=== PATIENT | female | born 1960 | race Caucasian/White ===

== ENCOUNTER 2019-02-22 21:52 | Inpatient (IN) ==
[2019-02-22] MEDS ORDERED: ONDANSETRON 4 MG/2 ML VIAL IV ONE (22:27)
[2019-02-22] MEDS ORDERED: 0.9 % SODIUM CHLORIDE 1,000 ML IV ONE (22:27)
--- NOTE | 2019-02-22 22:31 | Emergency Department Note ---
Abdominal Pain HPI - General Chief Complaint: Abdominal Pain Stated Complaint: Worst Abdominal Pain Ever Time Seen by Provider: 02/22/19 22:11 - History of Present Illness HPI Narrative: This pleasant 58-year female comes emergency room with epigastric abdominal pain that is gradually been progressive over the last 1 month with it worsening in severity and frequency until it is occurring daily with some waxing and waning. In the last 4 to 5 days it is worsened. Cello used to be the one thing she could tolerate but not even this was tolerated today. Her last bowel movement was 4 days ago but she admits to not taking much in. She is tried Pepto-Bismol just in the last couple of days as well as an antacid with limited benefit. She has had some sweatiness and hot feeling after eating recently. She thought she had food poisoning 2 weeks ago after a sandwich and became rather ill after this. Pain is in the middle subxiphoid region with some radiation into the lower back. It is severe in degree and there is a constant character as well as some waxing and waning of spikes of pain. She had some cold chills and then very hot recently and believes she had a fever. REVIEW OF SYSTEMS: Denies chest pain, cough. Some shortness of breath from the pain. Some nausea. Vomited 6 to 7 x 4 days ago. No diarrhea. If she really is constipated this is somewhat new. She denies hematochezia. Has recently had some black stools but this could be due to Pepto-Bismol though she is only had the Pepto-Bismol and last several days and has not had a bowel movement recently. Denies dysuria or frequency or urgency. Has some bright orange hue to her urine in spite of drinking a fair amount of water. Some back discomforts in the lower back Some general weakness and lightheaded/dizziness. Denies anxiety and depression. - Related Data Home Medications Medication Instructions Recorded Confirmed No Known Home Meds 02/22/19 02/22/19 Allergies Allergy/AdvReac Type Severity Reaction Status Date / Time No Known Drug Allergies Allergy Verified 02/22/19 22:01 Abdominal Pain PMH - Past Medical History Attestation: Yes: The following information was validated with the patient. Medical history: Reports: obesity, other (DENIES: pyelonephritis). Denies: CAD (coronary artery disease), DVT, DM, GERD, hypertension, hypothyroidism, myocardial infarction, pulmonary embolus, renal disease Denies: diverticulitis, kidney stone, pancreatitis, peptic ulcer disease Surgical history ED: Reports: tubal ligation Psychiatric history: Denies: anxiety, depression Family history: Reports: other (Mother, breast cancer) - Social History Smoking status: Former smoker (Remotely brief period of time) Alcohol use: Reports: Occasionally (1 drink may be every 1 or 1-1/2 weeks) Drug use: Reports: none. Denies: marijuana Physical Exam Limitations: no limitations General appearance: alert, in no apparent distress (But at times wincing or slight panting due to epigastric pain.) Head: atraumatic, normocephalic Eye: Present: normal appearance, EOMI ENT: normal oropharynx, mucous membranes dry Neck: Present: trachea midline, other (Mild to moderate tenderness in the lymph nodes bilaterally high anterior chain with mild lymphadenopathy present). Absent: lymphadenopathy, thyromegaly Chest: Present: symmetric chest wall rise Respiratory: Present: normal lung sounds bilaterally. Absent: respiratory distress, wheezes, stridor, accessory muscle use, prolonged expiratory phase Cardiovascular: Present: regular rate, normal rhythm. Absent: systolic murmur, diastolic murmur Abdominal: Present: soft, tenderness, other (Quite large). Absent: distention, guarding, rebound, rigidity, organomegaly, mass Abdominal tenderness: Present: epigastrium, severe Extremities: Absent: pedal edema, pretibial edema, calf tenderness Back: Present: CVA tenderness (R) (Mild, subjective). Absent: CVA tenderness (L), spinous process tenderness Neurological: Present: alert, oriented X3 Psychiatric: Present: normal affect, serious. Absent: depressed, agitated, anxious, tearful, poor eye contact Skin: Present: warm, dry Course Vital Signs Temperature 97.8 F 02/22/19 21:52 Pulse Rate 63 02/22/19 21:52 Respiratory Rate 24 H 02/22/19 21:52 Blood Pressure 158/73 02/22/19 21:52 Pulse Oximetry (%) 98 02/22/19 21:52 Temperature 97.8 F 02/22/19 21:52 Pulse Rate 57 L 02/22/19 22:46 Respiratory Rate 24 H 02/22/19 21:52 Blood Pressure 139/67 02/22/19 22:46 Pulse Oximetry (%) 98 02/22/19 22:46 Abdominal Pain - MDM Narrative Medical decision making narrative: 10:17 PM - acute rather severe and accelerating pain over multiple weeks located epigastric. Labs and imaging and EKG. 11:48 PM - Ultrasound showing probable common bile duct instruction/dilatation with pain over this area. After labs return I will discuss this with surgeon. Urine visualized to be a brown-orange tea color. Patient reports that this has been off and on in the past several days. - Medical Records Medical records reviewed: Yes I reviewed the patient's medical records. - Lab Data Lab results reviewed: Yes I reviewed the patient's lab results. Result diagrams: 02/22/19 22:35 02/22/19 22:35 Lab Results 02/22/19 02/22/19 02/22/19 Range/Units 22:35 22:35 23:52 WBC 12.4 H (4.5-11.0) K/mcL RBC 4.53 (4.00-5.20) M/mcL Hgb 13.2 (12.0-15.0) g/dL Hct 39.0 (36.0-48.0) % MCV 86.1 (80.0-100.0) fL MCH 29.1 (26.0-34.0) pg MCHC 33.8 (31.0-36.0) g/dL RDW 12.1 (11.5-14.5) % Plt Count 266 (140-440) K/mcL MPV 10.8 H (7.4-10.4) fL Gran % 85.5 H (38.0-78.0) % Lymph % (Auto) 6.9 L (15.5-49.0) % [place] % (Auto) 6.7 (1.0-12.0) % Eos % (Auto) 0.3 (0.0-7.0) % Baso % (Auto) 0.6 (0.0-2.0) % Gran # 10.6 H (1.8-8.0) K/mcL Lymph # (Auto) 0.9 L (1.5-4.8) K/mcL [place] # (Auto) 0.8 (0.1-0.9) K/mcL Eos # (Auto) 0 (0.0-0.7) K/mcL Baso # (Auto) 0.1 (0.0-0.3) K/mcL Sodium 135 (133-145) mmol/L Potassium 3.5 (3.3-5.1) mmol/L Chloride 94 L (96-108) mmol/L Carbon Dioxide 26 (22-30) mmol/L Anion Gap 15.0 (8-16) BUN 10 (6-20) mg/dl Creatinine 0.9 (0.6-1.1) mg/dl GFR Calculation 70 Glucose 125 H (70-105) mg/dL Calcium 9.1 (8.6-10.4) mg/dl Total Bilirubin 3.5 H (0.0-1.0) mg/dL AST 331 H (0-37) U/l ALT 317 H (0-40) U/l Alkaline Phosphatase 673 H (39-117) U/L C-Reactive Protein 17.8 H (0.0-0.8) mg/dl Total Protein 7.5 (5.9-8.4) gm/dL Albumin 4.1 (3.2-5.2) gm/dL Globulin 3.4 (2.2-3.7) gm/dL Albumin/Globulin Ratio 1.2 (1.0-2.3) Lipase 1897 H (7-60) U/L Urine Color Ramona Urine Appearance Clear Urine pH 5.0 (5.0-9.0) Ur Specific [place] 1.028 (1.000-1.035) Urine Protein 100 A (NEG) mg/dL Urine Glucose (UA) Negative (NEG) mg/dL Urine Ketones 80 A (NEG) mg/dL Urine Occult Blood 0.03 A (<0.03) mg/dL Urine Nitrate Neg (NEG) Urine Bilirubin 2.0 A (NEG) mg/dL Urine Ictotest Neg (NEG) Urine Urobilinogen 4.0 A (NEG) mg/dL Ur Leukocyte Esterase Neg (NEG) /uL Urine RBC < 1 (0-1) /hpf Urine WBC 2 (0-4) /hpf Ur Squamous Epith Cells < 1 (0-4) /hpf Urine Bacteria 0 (0) /hpf Urine Mucus Many A (0) /hpf Ur Culture Indicated? No - Radiology Data Radiology results reviewed: Yes I reviewed the patient's radiology results. senior technical manager reveals that there is a large number of stones in the gallbladder with dilation and tenderness over it in the pancreas as well as dilatation of the intrahepatic ducts and the common bile duct dilated up to 19 mm. - EKG Data EKG results narrative: No acute coronary syndrome findings. This ECG will be read by a meeting specialist. Disposition Pt seen by FINISHER POLISHER/PA only: No Clinical Impression: Cholelithiasis and acute cholecystitis with obstruction Pancreatitis, acute Qualifiers: Pancreatitis type: unspecified pancreatitis type Acute pancreatitis complication: no infection or necrosis Qualified Code(s): K85.90 - Acute pancreatitis without necrosis or infection, unspecified Summary: See MEDICAL DECISION MAKING above. After consulting with Dr. Robinson Santos, general surgeon, he agrees to admit this patient under his services with consultation from Dr. Ace Zavala, fashion intern for consideration of ERCP. See admitting diagnoses. Patient will be placed on Zosyn 3.375 mg IV every 6 hours as well as pain medication and nausea medication. She will be a full admit. She will be n.p.o. and given IV fluids. Disposition: Xfer As Inpt ([facility]) Referrals: No,PCP [Primary Care Provider] -
[2019-02-22] MEDS: HYDROmorphone 2 MG/ML VIAL IV PRN (22:38)
[2019-02-22 23:26] LABS: Basophils # (Auto) 0.1 K/mcL (0.0-0.3); Basophils % (Auto) 0.6 % (0.0-2.0); Eosinophils # (Auto) 0 K/mcL (0.0-0.7); Eosinophils % (Auto) 0.3 % (0.0-7.0); Granulocytes % (Auto) 85.5 % (38.0-78.0); Hemoglobin 13.2 g/dL (12.0-15.0); Lymphocytes # (Auto) 0.9 K/mcL (1.5-4.8); Lymphocytes % (Auto) 6.9 % (15.5-49.0); Mean Cell Volume 86.1 fL (80.0-100.0); Mean Corpuscular HGB Conc 33.8 g/dL (31.0-36.0); Mean Platelet Volume 10.8 fL (7.4-10.4); Monocytes # (Auto) 0.8 K/mcL (0.1-0.9); Monocytes % (Auto) 6.7 % (1.0-12.0); Platelet Count 266 K/mcL (140-440); RBC 4.53 M/mcL (4.00-5.20); Red Cell Distribution Width 12.1 % (11.5-14.5); WBC 12.4 K/mcL (4.5-11.0)
[2019-02-23 00:13] LABS: ALT/SGPT 317 U/l (0-40); AST/SGOT 331 U/l (0-37); Albumin 4.1 gm/dL (3.2-5.2); Albumin/Globulin Ratio 1.2 (1.0-2.3); Alkaline Phosphatase 673 U/L (39-117); Bilirubin,Total 3.5 mg/dL (0.0-1.0); Blood Urea Nitrogen 10 mg/dl (6-20); C-Reactive Protein 17.8 mg/dl (0.0-0.8); Calcium 9.1 mg/dl (8.6-10.4); Carbon Dioxide 26 mmol/L (22-30); Chloride 94 mmol/L (96-108); Globulin 3.4 gm/dL (2.2-3.7); Glomerular Filtration Rate 70; Glucose 125 mg/dL (70-105)
[2019-02-23 00:44] LABS: Appearance,Urine CLEAR; Bacteria,Urine 0 /hpf (0); Color,Urine AMBER; Culture Indicated,Urine NO; Glucose,Urine (UA) NEGATIVE (NEG); Ictotest,Urine NEG (NEG); Ketones,Urine 80 mg/dL (NEG); Leukocyte Esterase,Urine NEG /uL (NEG); Mucus,Urine MANY /hpf (0); Nitrate,Urine NEG (NEG); Protein,Urine 100 mg/dL (NEG); Specific Gravity,Urine 1.028 (1.000-1.035); Urine Blood 0.03 mg/dL (<0.03); Urine RBC < 1 /hpf (0-1); Urine Squamous Epithelial Cell < 1 /hpf (0-4); Urine WBC 2 /hpf (0-4)
[2019-02-23] MEDS ORDERED: LACTATED RINGERS 1,000 ML IV SCH ×2 (00:45→13:45)
[2019-02-23] MEDS ORDERED: 0.9 % SODIUM CHLORIDE 1,000 ML IV ONE (00:49)
[2019-02-23] MEDS: HYDROmorphone 2 MG/ML VIAL IV PRN ×3 (00:55→21:08)
[2019-02-23] MEDS: PIPERACILLIN SODIUM/TAZOBACTAM 3.375 GM in DEXTROSE 5% IN WATER 50 ML IV SCH ×5 (01:57→23:32)
--- NOTE | 2019-02-23 03:27 | XRay Report ---
CLINICAL INFORMATION: Chest pain COMPARISON: None. FINDINGS: The heart size, mediastinum and pulmonary vessels are unremarkable. The lungs are clear. There are no effusions. The bones and soft tissues are within normal limits. IMPRESSION: Normal chest. Interpreted and Authenticated by: Prakash Davis 02/23/19
--- NOTE | 2019-02-23 03:27 | XRay Report ---
CLINICAL INFORMATION: abdominal pain COMPARISON: None. FINDINGS: The stool gas pattern is unremarkable. There is no free air, soft tissue mass, organomegaly or pathologic calcification. IMPRESSION: Normal abdomen Interpreted and Authenticated by: Prakash Davis 02/23/19
--- NOTE | 2019-02-23 03:39 | Ultrasound Report ---
CLINICAL INFORMATION: severe epigastric pain COMPARISON: None. FINDINGS: The liver is mildly enlarged and diffusely hyperechoic compatible with fatty change. No focal hepatic lesions. Multiple stones present within the gallbladder. Gallbladder wall is normal thickness at 2.5 mm. Common bile duct is markedly dilated in the suprapancreatic region but tapers to 8 mm a pancreatic region. The pancreatic duct is mildly dilated. Pancreas otherwise grossly normal. No free fluid IMPRESSION: Cholelithiasis. Focal tenderness over the gallbladder wall suggests associated cholecystitis. Moderate dilatation of the common bile duct suggesting identified choledocholithiasis in the distal common bile duct. Mild dilatation of pancreatic duct would support a stone in the ampullary region. Suggest: Surgical consultation and consider abdominal MRI /MRCP for better liver evaluation and to evaluate choledocholithiasis in the common bile duct Interpreted and Authenticated by: Prakash Davis 02/23/19
[2019-02-23] MEDS: ONDANSETRON 4 MG/2 ML VIAL IV PRN ×3 (04:08→21:08)
--- NOTE | 2019-02-23 09:14 | Internal Medicine Consult Note ---
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 They're unaffected by eating. 5 days ago, she developed unrelenting constant epigastric pain that radiated into the back. She had subjective fever. She developed nausea and vomiting. She has lost 15 pounds over the last month. She presented to the emergency department where she was discovered to have liver enzyme elevation in a cholestatic pattern with total bilirubin 3.5, alkaline phosphatase 673, ALT 317, AST 331. Lipase was elevated at 1900. White count was elevated at 12,400 with a predominance of gr anulocytes and she was started on Zosyn. She is scheduled to undergo cholecystectomy, but abdominal ultrasound revealed common bile duct dilatation at 19 mm with cholelithiasis and we have been consulted for ERCP. She drinks alcohol about once a week and has never been a heavy drinker. CC: Lupillo Santos MD All systems: reviewed and no additional remarkable complaints except as stated (constipation, which she treats with magnesium) Medical - CN: PMH Medical history: Allergic rhinitis, constipation Surgical history: Tubal ligation Pertinent family history: Her mother had breast cancer. 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 She lives alone. She is a former smoker but no longer uses tobacco. She drinks alcohol once weekly. She denies any recreational drug use. Medical - CN: Meds Home Medications Medication Instructions Recorded Confirmed Type No Known Home Meds 02/22/19 02/22/19 History Allergies Allergy/AdvReac Type Severity Reaction Status Date / Time No Known Drug Allergies Allergy Verified 02/22/19 22:01 Medical - CN: Exam - Constitutional Vitals: Temp Pulse Resp BP Pulse Ox 97.4 F 70 12 122/70 94 02/23/19 03:52 02/23/19 03:52 02/23/19 03:52 02/23/19 03:52 02/23/19 03:52 General appearance: cooperative, mild distress, obese - Head Head exam: Present: atraumatic, normal inspection, normocephalic - Eye Additional comments: very slight icterus - Neck Neck exam: Present: normal inspection. Absent: lymphadenopathy, thyromegaly - Respiratory Respiratory exam: Present: normal respiratory exam, CTAB. Absent: rales, rhon chi, wheezes - Cardiovascular Cardiovascular exam: Present: normal rate and rhythm. Absent: diastolic murmur, gallop, systolic murmur - GI/Abdominal GI/Abdominal exam: Present: normal bowel sounds, hernia, tenderness (marked epigastric tenderness with positive Beyer's sign). Absent: mass, organomegaly - Expanded GI/Abdominal Exam GI/Abdominal exam: Present: Beyer's sign - Extremities Exam Extremities exam: Present: normal inspection, Foot pink and warm. Absent: pedal edema - Neurological Exam Neurological exam: Present: alert. Absent: altered - Psychiatric Psychiatric exam: Present: normal affect, normal mood - Skin Skin exam: Present: warm. Absent: normal color (mild jaundice) Medical - CN: Result - Labs CBC & Chem 7: 02/22/19 22:35 02/22/19 22:35 Labs: Short CBC 02/22/19 Range/Units 22:35 WBC 12.4 H (4.5-11.0) K/mcL Hgb 13.2 (12.0-15.0) g/dL Hct 39.0 (36.0-48.0) % Plt Count 266 (140-440) K/mcL BMP 02/22/19 22:35 Sodium 135 Potassium 3.5 Chloride 94 L Carbon Dioxide 26 BUN 10 Creatinine 0.9 Glucose 125 H Calcium 9.1 Liver Function 02/22/19 Range/Units 22:35 Total Bilirubin 3.5 H (0.0-1.0) mg/dL AST 331 H (0-37) U/l ALT 317 H (0-40) U/l Alkaline Phosphatase 673 H (39-117) U/L Albumin 4.1 (3.2-5.2) gm/dL Urine 02/22/19 Range/Units 23:52 Urine Color [place]ona Urine Appearance Clear Urine pH 5.0 (5.0-9.0) Ur Specific [place] 1.028 (1.000-1.035) Urine Protein 100 A (NEG) mg/dL Urine Glucose (UA) Negative (NEG) mg/dL Medical - CN: A/P (1) Cholelithiasis and acute cholecystitis with obstruction Status: Acute (2) Pancreatitis, acute Status: Acute Assessment and plan: I discussed her case with Dr. Moy. we will arrange for ERCP today. I reviewed this with the patient in detail using an illustration. We discussed the risk of perforation, infection, pancreatitis, and bleeding. Dr. Santos, surgeon, plans to proceed with cholecystectomy following ERCP. We will follow her after ERCP until her lipase and liver enzymes improve.
[2019-02-23 12:01] LABS: INR 1.2 (0.9-1.1); Prothrombin Time 15.1 sec (11.9-14.5)
--- NOTE | 2019-02-23 12:31 | General Surg History&Physical ---
History of Present Illness Patient information: Note initiated : 02/23/19 at 12:29 pm Service Date, if different from initiated Date: [] Patient: Maty Traylor a 58 y/o F admitted on 02/23/19 for Worst Abdominal Pain Ever. Chief Complaint: [] HPI: Ms. Traylor is a 58 year old F admitted with acute cholecystitis with cho lelithiasis and choledocholithiasis. Patient has a one-month history of recurrent epigastric and right upper quadrant pain. She states that she started having severe episodes about 2 weeks ago when she had multiple episodes of nausea vomiting and abdominal bloating that lasted for about 2 days. She continued to have intermittent pains thereafter. The pain became much worse on Thursday of last week and has persisted continuously since that time. She was seen in the emergency room where was noted that she had white blood count 12.4 with elevated transaminases and lipase with alkaline phosphatase of 673. Abdominal ultrasound shows dilated common bile duct of 19 mm and multiple stones with thickened gallbladder wall. Patient is admitted and will undergo ERCP followed by cholecystectomy during this hospitalization. Review of Systems All systems PM: reviewed and no additional remarkable complaints except as stated (no other complaints except as noted in history of present illness) Past History Past medical history: No chronic medical conditions Past surgical history: Tubal ligation Past family history: Mother age 55 due to breast cancer Father age and cause of unknown 5 siblings all healthy without illness Past social history: Single Employment No tobacco use since age 20 Uses vodka at least once weekly Denies drug use Medications and Allergies Home Medications Medication Instructions Recorded Confirmed Type No Known Home Meds 02/22/19 02/22/19 History Allergies Allergy/AdvReac Type Severity Reaction Status Date / Time No Known Drug Allergies Allergy Verified 02/22/19 22:01 Exam Temp Pulse Resp BP Pulse Ox 97.6 F 72 18 108/62 89 L 02/23/19 08:00 02/23/19 08:00 02/23/19 08:00 02/23/19 08:00 02/23/19 08:00 - General physical appearance well developed, well nourished, no distress, obese - Eyes PERRL, normal ocular movement, icteric - ENT normal pinna, normal nares, normal mucosa, no hearing loss, no congestion - Head Head exam IM: Present: atraumatic, normocephalic - Neck no masses, no bruits, trachea midline, no lymphadenopathy, no venous distension - Cardiovascular Cardiovascular exam IM: Present: normal rate and rhythm, RRR, +S1. Absent: JVD, tachycardia - Respiratory normal expansion, normal respiratory effort, clear to percussion, clear to auscultation - Abdomen Abdomen: Present: soft, tender (epigastric and right upper quadrant tenderness with guarding and rebound), bowel sounds Hernia: Present: none - Genitourinary Present: normal external genitalia - Integumentary Present: no rash, no growths, no abnormal pigmentation - Neurologic Present: normal coordination, normal sensation - Musculoskeletal Present: normal gait, normal posture - Psychiatric Present: oriented to time, oriented to person, oriented to place, speech is normal, memory intact Assessment and Plan (1) Cholelithiasis and acute cholecystitis with obstruction Cholecystectomy will be performed during this admission after completion of ERCP Status: Acute (2) Choledocholithiasis Patient will have ERCP later today Status: Acute (3) Pancreatitis, acute Status: Acute Qualifiers: Pancreatitis type: unspecified pancreatitis type Acute pancreatitis complication: no infection or necrosis Qualified Code(s): K85.90 - Acute pancreatitis without necrosis or infection, unspecified (4) Obesity (BMI 30-39.9) Status: Chronic
[2019-02-23] MEDS ORDERED: INDOMETHACIN 25 MG CAPSULE PO ONE (15:00)
[2019-02-23] MEDS ORDERED: NITROGLYCERIN 0.6 MG/HR PATCH TD SCH (15:15)
[2019-02-23] MEDS ORDERED: LACTATED RINGERS 250 ML IV ONE (16:00)
[2019-02-23] MEDS ORDERED: PROPOFOL 40 ML IV ONE (16:39)
[2019-02-23] MEDS ORDERED: MIDAZOLAM 2 MG/2 ML VIAL ONE (16:39)
[2019-02-23] MEDS: PROPOFOL 200 MG/20 ML VIAL IV ONE ×3 (16:48→22:39)
[2019-02-23] MEDS: MIDAZOLAM 2 MG/2 ML VIAL IV ONE ×3 (16:48→22:40)
[2019-02-23] MEDS ORDERED: IOPAMIDOL 100 ML BOTTLE IJ ONE (16:48)
[2019-02-23] MEDS: LACTATED RINGERS 1,000 ML IV SCH (17:28)
[2019-02-24] MEDS: LACTATED RINGERS 1,000 ML IV SCH ×3 (01:38→16:23)
[2019-02-24] MEDS: ONDANSETRON 4 MG/2 ML VIAL IV PRN (01:44)
[2019-02-24] MEDS: HYDROmorphone 2 MG/ML VIAL IV PRN (01:45)
[2019-02-24] MEDS: PIPERACILLIN SODIUM/TAZOBACTAM 3.375 GM in DEXTROSE 5% IN WATER 50 ML IV SCH ×4 (05:16→23:15)
[2019-02-24 09:43] LABS: Basophils # (Auto) 0 K/mcL (0.0-0.3); Basophils % (Auto) 0.5 % (0.0-2.0); Eosinophils # (Auto) 0.1 K/mcL (0.0-0.7); Granulocytes % (Auto) 79.9 % (38.0-78.0); Hematocrit 33.6 % (36.0-48.0); Hemoglobin 11.3 g/dL (12.0-15.0); Lymphocytes # (Auto) 1.1 K/mcL (1.5-4.8); Lymphocytes % (Auto) 12.1 % (15.5-49.0); Mean Cell Volume 87.9 fL (80.0-100.0); Mean Corpuscular HGB Conc 33.5 g/dL (31.0-36.0); Mean Platelet Volume 10.4 fL (7.4-10.4); Monocytes # (Auto) 0.6 K/mcL (0.1-0.9); Monocytes % (Auto) 6.5 % (1.0-12.0); Platelet Count 249 K/mcL (140-440); RBC 3.83 M/mcL (4.00-5.20); WBC 9.3 K/mcL (4.5-11.0)
[2019-02-24 10:09] LABS: ALT/SGPT 295 U/l (0-40); AST/SGOT 160 U/l (0-37); Albumin 3.1 gm/dL (3.2-5.2); Alkaline Phosphatase 500 U/L (39-117); Amylase 59 U/L (28-100); Bilirubin,Direct 0.4 mg/dL (0.0-0.3); Bilirubin,Total 0.9 mg/dL (0.0-1.0); Blood Urea Nitrogen 11 mg/dl (6-20); Calcium 8.4 mg/dl (8.6-10.4); Carbon Dioxide 27 mmol/L (22-30); Chloride 102 mmol/L (96-108); Globulin 3.1 gm/dL (2.2-3.7); Glomerular Filtration Rate 70; Glucose 90 mg/dL (70-105); Lactate Dehydrogenase 197 U/L (94-250); Triglycerides 101 mg/dl (<150); Uric Acid 3.3 mg/dL (2.5-8.0)
--- NOTE | 2019-02-24 11:55 | ERCP Procedure Note ---
ERCP Procedure Notes - Procedure Information Patient information: Note initiated : 02/24/19 at 11:54 am Service Date: 02/23/19 Patient: Maty Traylor 58 y/o F admitted on 02/23/19 for Abdominal Pain. Choledocholithiasis. Pre-op diagnosis general: Common bile duct stone. Post-op diagnosis general: Common bile duct stone. Procedure: ERCP Procedure narrative: The procedures, alternatives and risks were discussed with the patient and the patient's questions were answered. With endoscopist-administered intravenous sedation, the Olympus side viewing operating duodenoscope was introduced into the esophagus and advanced to the second part of the duodenum without difficulty. The ampulla of Vater was identified. Papillotomy was performed using a needle knife. The bile duct was selectively cannulated taking care to avoid the pancreatic duct and cholangiogram obtained. The bile duct was markedly dilated and obstructed with multiple white faceted cholesterol common duct stones. All visible stones were extracted with balloon techniques. At the end of the procedure, the bile duct appeared to be cleared of all stones. The scope was withdrawn. Assessment: Common bile duct stone.
--- NOTE | 2019-02-24 13:42 | Internal Med Progress Note ---
Medical - PN: Subj Patient information: Note initiated : 02/24/19 at 1:40 pm Service Date, if different from initiated Date: [] Patient: Maty Traylor 58 y/o F admitted on 02/23/19 for Abdominal Pain . Chief Complaint: [choledocholithiasis with gallstone pancreatitis] Interval history: Ms Traylor is a 58 year old white female who underwent ERCP which revealed multiple cholesterol stones in the common bile duct. Papillotomy was performed. Lipase and total bilirubin have normalized and liver enzymes are trending down. Abdominal pain and jaundice have resolved. - Constitutional Vitals: Vital Signs Temp Pulse Resp BP Pulse Ox 97.8 F 52 L 16 117/68 93 02/24/19 11:38 02/24/19 03:26 02/24/19 11:38 02/24/19 11:38 02/24/19 11:38 Period Temp Pulse Resp BP Sys/[place] Pulse Ox Last 24 Hr 97.6 F-98.6 F 50-65 14-18 97-125/56-84 90-97 Intake and Output 02/23/19 02/24/19 02/24/19 21:59 05:59 13:59 Intake Total 100 1510 340 Output Total 450 675 425 Balance -350 835 -85 Weight 249 lb Intake & Output: Intake & Output 02/23/19 02/24/19 02/24/19 21:59 05:59 13:59 Intake Total 100 1510 340 Output Total 450 675 425 Balance -350 835 -85 Weight 249 lb Intake: IV 100 1050 100 Lactated Ringers 1,000 ml @ 125 1000 mls/hr IV .Q8H INOC[facility] Rx#: [id number] Zosyn 3.375 gm In Dextrose 5% 100 50 100 in Water 50 ml @ 100 mls/hr IV Q6H INOCENCIA Rx#:[id number] Oral 460 240 Output: Void Amount 450 675 425 Other: Meal Breakfast Percent of Meal Consumed 100% Feeding Ability Independent Urine Appearance Clear Urine Color Dark Yellow Bright Yellow Dark [place] Blood Tinged Urine Odor Strong Normal # Voids 1 # Unmeasured Emesis 1 General appearance: cooperative, no acute distress, obese - GI/Abdominal GI/Abdominal exam: Present: soft. Absent: firm, hernia, mass, rigid, tenderness - Skin Skin exam: Present: dry, normal color, warm Medical - PN: Obj Da - Labs CBC & Chem 7: 02/24/19 08:23 02/24/19 08:23 Labs: Abnormal Lab Results 02/24/19 02/24/19 02/23/19 08:23 08:23 11:23 WBC RBC 3.83 L Hgb 11.3 L Hct 33.6 L MPV Gran % 79.9 H Lymph % (Auto) 12.1 L Gran # Lymph # (Auto) 1.1 L PT 15.1 H INR 1.2 H APTT 41 H Chloride Glucose Calcium 8.4 L Total Bilirubin Direct Bilirubin 0.4 H GGT 387 H AST 160 H ALT 295 H Alkaline Phosphatase 500 H C-Reactive Protein Albumin 3.1 L Lipase Urine Protein Urine Ketones Urine Occult Blood Urine Bilirubin Urine Urobilinogen Urine Mucus 02/22/19 02/22/19 02/22/19 23:52 22:35 22:35 WBC 12.4 H RBC Hgb Hct MPV 10.8 H Gran % 85.5 H Lymph % (Auto) 6.9 L Gran # 10.6 H Lymph # (Auto) 0.9 L PT INR APTT Chloride 94 L Glucose 125 H Calcium Total Bilirubin 3.5 H Direct Bilirubin GGT AST 331 H ALT 317 H Alkaline Phosphatase 673 H C-Reactive Protein 17.8 H Albumin Lipase 1897 H Urine Protein 100 A Urine Ketones 80 A Urine Occult Blood 0.03 A Urine Bilirubin 2.0 A Urine Urobilinogen 4.0 A Urine Mucus Many A Meds: Medications Hydromorphone HCl (Dilaudid) 0.5 - 1 mg IV Q2HP PRN PRN Reason: PAIN LEVEL > 6 Last Admin: 02/24/19 01:45 Dose: 0.5 mg Documented by: Piperacillin Sod/Tazobactam (Sod 3.375 gm/ Dextrose) 50 mls @ 100 mls/hr IV Q6H INOCENC[facility]; Protocol Last Infusion: 02/24/19 13:17 Dose: Infused Documented by: Lactated Ringer's (Lactated Ringers) 1,000 mls @ 125 mls/hr IV .Q8H INOCENCIA Last Admin: 02/24/19 01:38 Dose: 125 mls/hr Documented by: Ondansetron HCl (Zofran) 4 mg IV Q4HP PRN PRN Reason: Nausea And Vomiting Last Admin: 02/24/19 01:44 Dose: 4 mg Documented by: Medical - PN: A/P - Time Spent With Patient Total time spent is greater than 50% in coordination of care (as documented) at patient's floor/unit and/or counseling patient: less than 15 minutes (1) Cholelithiasis and acute cholecystitis with obstruction Status: Acute Current Visit: Yes (2) Pancreatitis, acute Status: Acute Current Visit: Yes - Narrative A/P Narrative: she is scheduled for cholecystectomy later today. Given her improvement, we have signed out on this case to Dr. Santos, but would be happy to see her again if necessary. Medical - PN: Qual - Stroke Symptom Onset Unknown: No - VTE Deep Vein Thrombosis/Pulmonary Embolism Present on Admission: No
--- NOTE | 2019-02-24 13:52 | General Surgery Progress Note ---
Subjective Patient reports: feels better, pain is less, tolerating liquids well, flatus, afebrile Narrative: Note initiated : 02/24/19 at 1:49 pm Service Date, if different from initiated Date: [] Patient: Maty Traylor 58 y/o F admitted on 02/23/19 for Abdominal Pain . Chief Complaint: [patient feels much better. She is successful ERCP with papillotomy and extraction of stones and Unasyn. Her bilirubin and lipase have normalized. Her LFTs are trending down. She is tolerating liquid diet without difficulty. White blood count 9.3,. Hemoglobin 11.3, hematocrit 33.6.] Objective Temp Pulse Resp BP Pulse Ox 97.8 F 52 L 16 117/68 93 02/24/19 11:38 02/24/19 03:26 02/24/19 11:38 02/24/19 11:38 02/24/19 11:38 - Additional Data Intake & Output - Last 24 hours: Intake & Output 02/22/19 02/23/19 02/24/19 02/25/19 05:59 05:59 05:59 05:59 Intake Total 1050 2897 340 Output Total 1950 425 Balance 1050 947 -85 Weight 248 lb 249 lb - General physical appearance well developed, well nourished, no distress, no pain, obese - Eyes PERRL, normal ocular movement - ENT normal pinna, normal nares, normal mucosa, no hearing loss, no congestion - Neck no masses, no bruits, trachea midline, no lymphadenopathy, no venous distension - Respiratory normal expansion, normal respiratory effort, clear to auscultation - Cardiovascular Cardiovascular exam: Present: normal rate and rhythm, RRR, +S1, +S2. Absent: JVD, tachycardia - Abdomen tender (minimal tenderness right upper quadrant), bowel sounds (present), surgical scars (none), masses (none) - Integumentary no rash, no growths, no abnormal pigmentation - Neurologic normal coordination, normal sensation - Musculoskeletal normal gait, normal posture - Psychiatric oriented to time, oriented to person, oriented to place, speech is normal, memory intact - Labs 02/24/19 08:23 02/24/19 08:23 Diabetes panel 02/24/19 Range/Units 08:23 Sodium 141 (133-145) mmol/L Potassium 3.4 (3.3-5.1) mmol/L Chloride 102 (96-108) mmol/L Carbon Dioxide 27 (22-30) mmol/L BUN 11 (6-20) mg/dl Creatinine 0.9 (0.6-1.1) mg/dl Glucose 90 (70-105) mg/dL Calcium 8.4 L (8.6-10.4) mg/dl AST 160 H (0-37) U/l ALT 295 H (0-40) U/l Alkaline Phosphatase 500 H (39-117) U/L Total Protein 6.2 (5.9-8.4) gm/dL Albumin 3.1 L (3.2-5.2) gm/dL Triglycerides 101 (<150) mg/dl Calcium panel 02/24/19 Range/Units 08:23 Calcium 8.4 L (8.6-10.4) mg/dl Phosphorus 3.0 (2.7-4.5) mg/dL Albumin 3.1 L (3.2-5.2) gm/dL Pituitary panel 02/24/19 Range/Units 08:23 Sodium 141 (133-145) mmol/L Potassium 3.4 (3.3-5.1) mmol/L Chloride 102 (96-108) mmol/L Carbon Dioxide 27 (22-30) mmol/L BUN 11 (6-20) mg/dl Creatinine 0.9 (0.6-1.1) mg/dl Glucose 90 (70-105) mg/dL Calcium 8.4 L (8.6-10.4) mg/dl Adrenal panel 02/24/19 Range/Units 08:23 Sodium 141 (133-145) mmol/L Potassium 3.4 (3.3-5.1) mmol/L Chloride 102 (96-108) mmol/L Carbon Dioxide 27 (22-30) mmol/L BUN 11 (6-20) mg/dl Creatinine 0.9 (0.6-1.1) mg/dl Glucose 90 (70-105) mg/dL Calcium 8.4 L (8.6-10.4) mg/dl Total Bilirubin 0.9 (0.0-1.0) mg/dL AST 160 H (0-37) U/l ALT 295 H (0-40) U/l Alkaline Phosphatase 500 H (39-117) U/L Total Protein 6.2 (5.9-8.4) gm/dL Albumin 3.1 L (3.2-5.2) gm/dL Assessment and Plan (1) Cholelithiasis and acute cholecystitis with obstruction Status: Acute Assessment and plan: Patient is significantly improved. She was counseled for laparoscopic cholecystectomy to be performed tomorrow. Current Visit: Yes (2) Choledocholithiasis Status: Resolved Assessment and plan: Status post successful ERCP with papillotomy and stone extraction Current Visit: Yes (3) Pancreatitis, acute Status: Resolved Current Visit: Yes (4) Obesity (BMI 30-39.9) Status: Chronic Current Visit: No - Time Spent With Patient Total time spent is greater than 50% in coordination of care (as documented) at patient's floor/unit and/or counseling patient:
[2019-02-24] MEDS ORDERED: SCOPOLAMINE 1 PATCH PATCH TOPICAL PRN (15:19)
[2019-02-24] MEDS ORDERED: IPRATROPIUM/ALBUTEROL 3 ML AMPUL.NEB NEB PRN (15:19)
[2019-02-24] MEDS ORDERED: BUTALB/ACETAMINOPHEN/CAFFEINE 1 TABLET PO PRN (20:37)
[2019-02-25] MEDS: LACTATED RINGERS 1,000 ML IV SCH ×4 (00:56→16:47)
[2019-02-25] MEDS: PIPERACILLIN SODIUM/TAZOBACTAM 3.375 GM in DEXTROSE 5% IN WATER 50 ML IV SCH ×3 (05:08→18:15)
[2019-02-25] MEDS ORDERED: IPRATROPIUM/ALBUTEROL 3 ML AMPUL.NEB NEB PRN ×2 (06:00→08:43)
[2019-02-25] MEDS: SCOPOLAMINE 1 PATCH PATCH TOPICAL PRN ×2 (07:08→07:09)
[2019-02-25] MEDS ORDERED: GLYCOPYRROLATE 0.2 MG/ML VIAL IV ONE (07:38)
[2019-02-25] MEDS ORDERED: PROPOFOL 200 MG/20 ML VIAL IV ONE (07:38)
[2019-02-25] MEDS ORDERED: DEXAMETHASONE 10 MG/ML VIAL ONE (07:38)
[2019-02-25] MEDS ORDERED: MIDAZOLAM 5 MG/5 ML VIAL ONE (07:38)
[2019-02-25] MEDS ORDERED: LIDOCAINE HCL/PF 100 MG/5 ML SYRINGE IV ONE (07:38)
[2019-02-25] MEDS ORDERED: KETAMINE 10 MG/ML ML ONE (07:38)
[2019-02-25] MEDS ORDERED: ROCURONIUM 10 MG/ML ML IV ONE (07:38)
[2019-02-25] MEDS ORDERED: fentaNYL 100 MCG/2 ML VIAL IV ONE (07:38)
[2019-02-25] MEDS ORDERED: SUGAMMADEX SODIUM 200 MG/2 ML VIAL IV ONE (07:38)
[2019-02-25] MEDS ORDERED: ONDANSETRON 4 MG/2 ML VIAL ONE (07:38)
[2019-02-25] MEDS ORDERED: NALOXONE HCL 0.4 MG/ML VIAL IV PRN (08:43)
[2019-02-25] MEDS ORDERED: FLUMAZENIL 0.1 MG/ML ML IV PRN (08:43)
[2019-02-25] MEDS ORDERED: ONDANSETRON 4 MG/2 ML VIAL IV PRN ×2 (08:43→10:28)
[2019-02-25] MEDS ORDERED: MEPERIDINE 50 MG/ML INJECTION IM PRN (08:43)
[2019-02-25] MEDS ORDERED: ATROPINE SULFATE 0.4 MG/ML VIAL IV PRN (08:43)
[2019-02-25] MEDS ORDERED: ACETAMINOPHEN 1,000 MG/100 ML BOTTLE IV ONE (08:43)
[2019-02-25] MEDS ORDERED: PROMETHAZINE 25 MG/ML VIAL IM PRN (08:43)
[2019-02-25] MEDS ORDERED: diphenhydrAMINE 50 MG/ML VIAL IV PRN (08:43)
[2019-02-25] MEDS ORDERED: MEPERIDINE 25 MG/ML SYRINGE IV PRN (08:43)
[2019-02-25] MEDS ORDERED: PROMETHAZINE 25 MG/ML VIAL IV PRN (08:43)
[2019-02-25] MEDS ORDERED: fentaNYL 100 MCG/2 ML VIAL IV PRN (08:43)
[2019-02-25] MEDS ORDERED: METHOCARBAMOL 1,000 MG/10 ML VIAL IV PRN (08:43)
[2019-02-25] MEDS ORDERED: ePHEDrine 50 MG/ML AMPUL IV PRN (08:43)
[2019-02-25] MEDS ORDERED: METOPROLOL TARTRATE 5 MG/5 ML VIAL IV PRN (08:43)
[2019-02-25] MEDS ORDERED: LACTATED RINGERS 1,000 ML IV SCH (08:45)
--- NOTE | 2019-02-25 09:10 | Brief Operative Note ---
Date of procedure: 02/25/19 Pre-op diagnosis: cholelithiasis with cholecystitis Post-op diagnosis: other (cholelithiasis with cholecystitis) Procedure: laparoscopic cholecystectomy Grafts/Implants: No Anesthesia: GETA Findings: acute severe inflammation of gallbladder with multiple gallstones Complications: none Surgeon: Lupillo Santos Estimated blood loss (cc): 10 Specimens Removed/Pathology: other (gallbladder) Condition: stable Disposition: PACU
[2019-02-25] MEDS ORDERED: HYDROcodone/APAP 5/325MG TABLET PO PRN (10:28)
[2019-02-25] MEDS ORDERED: BUTALB/ACETAMINOPHEN/CAFFEINE 1 TABLET PO PRN (10:28)
[2019-02-25] MEDS: 0.9 % SODIUM CHLORIDE 10 ML SYRINGE IV SCH (12:51)
[2019-02-26] MEDS: 0.9 % SODIUM CHLORIDE 10 ML SYRINGE IV SCH ×3 (00:09→13:15)
[2019-02-26] MEDS: PIPERACILLIN SODIUM/TAZOBACTAM 3.375 GM in DEXTROSE 5% IN WATER 50 ML IV SCH ×3 (00:09→11:28)
[2019-02-26] MEDS: LACTATED RINGERS 1,000 ML IV SCH ×3 (02:38→10:52)
[2019-02-26 06:16] LABS: Basophils # (Auto) 0 K/mcL (0.0-0.3); Basophils % (Auto) 0.3 % (0.0-2.0); Eosinophils # (Auto) 0 K/mcL (0.0-0.7); Eosinophils % (Auto) 0.2 % (0.0-7.0); Granulocytes % (Auto) 75.3 % (38.0-78.0); Hematocrit 34.5 % (36.0-48.0); Hemoglobin 11.4 g/dL (12.0-15.0); Lymphocytes # (Auto) 1.7 K/mcL (1.5-4.8); Lymphocytes % (Auto) 17.4 % (15.5-49.0); Mean Cell Volume 88.8 fL (80.0-100.0); Mean Corpuscular HGB Conc 32.9 g/dL (31.0-36.0); Mean Platelet Volume 10.5 fL (7.4-10.4); Monocytes # (Auto) 0.7 K/mcL (0.1-0.9); Monocytes % (Auto) 6.8 % (1.0-12.0); Platelet Count 294 K/mcL (140-440); RBC 3.89 M/mcL (4.00-5.20); Red Cell Distribution Width 12.8 % (11.5-14.5); WBC 9.6 K/mcL (4.5-11.0)
[2019-02-26 06:34] LABS: ALT/SGPT 130 U/l (0-40); AST/SGOT 22 U/l (0-37); Albumin/Globulin Ratio 0.9 (1.0-2.3); Alkaline Phosphatase 297 U/L (39-117); Bilirubin,Direct 0.2 mg/dL (0.0-0.3); Bilirubin,Total 0.5 mg/dL (0.0-1.0); Blood Urea Nitrogen 6 mg/dl (6-20); Calcium 8.8 mg/dl (8.6-10.4); Carbon Dioxide 30 mmol/L (22-30); Chloride 103 mmol/L (96-108); Globulin 3.2 gm/dL (2.2-3.7); Glomerular Filtration Rate 96; Glucose 98 mg/dL (70-105); Lactate Dehydrogenase 182 U/L (94-250); Phosphorous 2.8 mg/dL (2.7-4.5); Triglycerides 112 mg/dl (<150); Uric Acid 2.2 mg/dL (2.5-8.0)
--- NOTE | 2019-02-26 13:54 | Discharge Summary ---
Providers - Providers Patient information: Note initiated : 02/26/19 at 1:51 pm Service Date, if different from initiated Date: [] Patient: Maty Traylor 58 y/o F admitted on 02/23/19 for Abdominal Pain . Chief Complaint: [] Date of admission: 02/23/19 Discharge date: 02/26/19 Attending physician: Lupillo Santos Hospitalization Hospital course: 58-year-old female who presented with a one-month history of increasing abdominal pain with nausea vomiting and bloating. She became increasingly's more symptomatic for the few days prior to admission. She presented on the day of admission with severe abdominal pain and clinical jaundice. All of her LFTs were elevated as was her lipase. Her alkaline phosphatase was 673. Her common bile duct measures 19 mm. She had thickened gallbladder wall and multiple gallbladder stones. She was seen by Dr. Moy and underwent ERCP with extraction of 6 small stones. He also did a papillotomy. Patient has improved remarkably. She underwent laparoscopic cholecystectomy to February with findings of acute severe inflammation of gallbladder filled with multiple stones. Her LFTs have continued to decrease in her bilirubin and lipase are now normal. She is afebrile and is tolerating diet without difficulty. She is stable for discharge home. Discharge diagnosis: acute and cholecystitis with cholelithiasis and choledocholithiasis Secondary discharge diagnosis: Gallstone pancreatitis Reason for admission: abdominal pain nausea vomiting Procedures: Laparoscopic cholecystectomy March 14 ERCP with papillotomy February 11 Pertinent studies/significant findings: Upper abdominal ultrasound Complications: None Exam Temp Pulse Resp BP Pulse Ox 98.4 F 66 16 114/67 94 02/26/19 12:00 02/26/19 07:26 02/26/19 12:00 02/26/19 12:02/26/19 12:00 - General physical appearance well developed, well nourished, no distress, obese - Eyes PERRL, normal ocular movement. negative: icteric - ENT normal pinna, normal nares, normal mucosa, no hearing loss, no congestion - Head Head exam IM: Present: atraumatic, normocephalic - Neck no masses, no bruits, trachea midline, no lymphadenopathy, no venous distension - Cardiovascular Cardiovascular exam IM: Present: normal rate and rhythm - Respiratory normal expansion, normal respiratory effort, clear to percussion, clear to auscultation - Abdomen Abdomen: Present: soft, tender (bowel tenderness around port sites otherwise benign abdomen), bowel sounds Hernia: Present: none - Genitourinary Present: normal external genitalia - Integumentary Present: no rash, no growths, no abnormal pigmentation - Neurologic Present: normal coordination, normal sensation - Musculoskeletal Present: normal gait, normal posture - Psychiatric Present: oriented to time, oriented to person, oriented to place, speech is normal, memory intact Discharge Plan - Patient/Caregiver Discharge Instructions Activity: increase activity as tolerated Diet: Low Fat Additional Instructions: empty drain as needed - Follow up Plan Follow up with: Yolie Mccracken ARNP [Nurse Practitioner] - 03/03/19 12:30 pm (Please check in 10-15 minutes prior to appointment time.) Lupillo Santos MD [Physician] - 03/08/19 9:15 am No,PCP [Primary Care Provider] - Disposition: Home, Self-Care Prognosis: Good Rehab Potential: Good I certify that the patient requires SNF services.: No Overall status at discharge: patient is progressing back to baseline (on get him out) Pending Studies Resuscitation Status Full Code Diet Full Liquid Diet Start Thu 2 1028 Lactated Ringer's (Lactated Ringers) 1,000 mls @ 125 mls/hr IV .Q8H [facility] Last Admin: 02/26/19 10:52 Dose: 125 mls/hr Documented by: Infusion: 02/26/19 10:38 Dose: 125 mls/hr Documented by: Admin: 02/26/19 02:38 Dose: 125 mls/hr Documented by: Infusion: 02/26/19 00:47 Dose: 125 mls/hr Documented by: Admin: 02/25/19 16:47 Dose: 125 mls/hr Documented by: Infusion: 02/25/19 16:46 Dose: 0 mls/hr Documented by: Admin: 02/25/19 10:31 Dose: 125 mls/hr Documented by: [email or web address] Piperacillin Sod/Tazobactam (Sod 3.375 gm/ Dextrose) 50 mls @ 100 mls/hr IV Q6H [facility]; Protocol Last Infusion: 02/26/19 12:16 Dose: 50 mls/hr Documented by: Admin: 02/26/19 11:28 Dose: 100 mls/hr Documented by: Infusion: 02/26/19 09:21 Dose: 100 mls/hr Documented by: Admin: 02/26/19 05:09 Dose: 100 mls/hr Documented by: Infusion: 02/26/19 00:39 Dose: 100 mls/hr Documented by: Admin: 02/26/19 00:09 Dose: 100 mls/hr Documented by: Infusion: 02/25/19 18:41 Dose: 0 mls/hr Documented by: [email or web address] Admin: 02/25/19 18:15 Dose: 100 mls/hr Documented by: [email or web address] Infusion: 02/25/19 12:50 Dose: 0 mls/hr Documented by: [email or web address] Admin: 02/25/19 12:03 Dose: 100 mls/hr Documented by: [email or web address] Sodium Chloride (Saline Flush) 10 ml IV Q8 [facility] Last Admin: 02/26/19 13:15 Dose: Not Given Documented by: Admin: 02/26/19 05:18 Dose: 10 ml Documented by: Admin: 02/26/19 00:09 Dose: Not Given Documented by: Admin: 02/25/19 12:51 Dose: Not Given Documented by: [email or web address] Shift Summary 02/26/19 03:51 Shift Summary by Bharti Lara. A&Ox4. Has denied pain needs tonight. No N/V/abdominal discomfort. Uses call light to make needs known. Reports BM 02/25/19. IV to L wrist is running LR at 125ml/hr. Film dressings to surgical sites are dry and intact with scant shadow drainage present. Initialized on 02/26/19 03:51 - END OF NOTE
--- NOTE | 2019-03-01 13:14 | Surgical Pathology Report ---
HISTOLOGY SPECIMEN MICROSCOPIC DIAGNOSIS GALLBLADDER, CHOLECYSTECTOMY: -- ACUTE AND CHRONIC CHOLECYSTITIS WITH CHOLELITHIASIS. (RLF:asher) PROCEDURAL IMPRESSION Cholelithiasis; acute cholecystitis. GROSS DESCRIPTION Received in formalin labeled gallbladder, is an 8.7 x 2.6 x 2.3 cm pink-purple gallbladder specimen. The majority of the serosa is smooth and glistening with approximately 40% rough and brown-bro. The cystic duct is closed with a staple line and there is also an additional metal clamp present on the hepatic bed. In the hepatic bed there are three openings ranging in size from 0.2 cm up to 0.5 cm in greatest dimension. The mucosa is smooth with striations. The wall is up to 0.4 cm thick. There are multiple smooth pearlescent stones found within the gallbladder specimen that range in size from 0.2 to 1.2 cm in greatest dimension. M[employer]ician sections submitted - one cassette. (LILLIANW:asher) Electronically Signed by: Kate Ortiz M.D.
--- NOTE | 2019-03-01 15:25 | Operative Note ---
DATE OF OPERATION: 02/25/2019 PREOPERATIVE DIAGNOSIS: Cholelithiasis with cholecystitis. POSTOPERATIVE DIAGNOSIS: Cholelithiasis with cholecystitis. PROCEDURE: Laparoscopic cholecystectomy. SURGEON: Lupillo Santos MD FINDINGS: Acute severe inflammation of gallbladder with multiple stones. DESCRIPTION OF PROCEDURE: Under general anesthesia, the patient's abdomen was prepped and draped in a sterile field. Supraumbilical incision was made and Veress needle was inserted uneventfully. The abdomen was insufflated with 2 liters of CO2. A 12 mm port was placed. Laparoscope was placed. An acutely inflamed gallbladder with multiple stones was noted. Under videoscopic guidance, a 12 mm port and two 5 mm ports were placed in the right subcostal region. The gallbladder was grasped and positioned. The cystic duct was dissected. Cystic artery branch was dissected. After being assured of the position of these two structures, the cystic duct was followed back to the gallbladder where it was clipped with an Endo-MARTHA stapler on the wall of the gallbladder. Cystic artery was followed onto the wall of the gallbladder and clipped with five clips and divided. The gallbladder was then from the infrahepatic bed using electrocautery. It was placed in the Endopouch and retrieved. Irrigation was carried out. There was no bleeding and no bile leak. No drain was needed. CO2 was allowed to escape from the abdomen and the ports were removed. Fascia at the umbilicus was closed with 0 Vicryl. Skin incisions were closed with viviana. Tegaderm dressings were placed. The patient tolerated the procedure well. She was awakened, transferred to a bed and taken to the postanesthetic care unit in stable, satisfactory condition. LCS:deborah Job ID: [id number] Doc ID: [id number] Lupillo Santos M.D.
--- NOTE | 2019-03-06 20:13 | XRay Report ---
CLINICAL INFORMATION: Choledocholithiasis COMPARISON: None. FINDINGS: Common bile duct was cannulated and injected revealing moderate dilatation of the common hepatic and common bile duct due to multiple stones in the common bile duct. Stones were successfully retrieved with a balloon catheter and papillotomy was performed resulting in good drainage. IMPRESSION: Choledocholithiasis. The stones were successfully retrieved and removed with a balloon catheter and papillotomy performed resulting in drainage Interpreted and Authenticated by: Prakash Davis 03/06/19
== END 2019-02-26 17:03 | disposition home or self-care (01) | DRG 417 ==
LOC: ED 21:52 → MEDSUR 02-23 01:13
PROVIDERS: ADMIT Family Medicine Adult Medicine; ATTEND Family Medicine Adult Medicine